=== PATIENT | male | born 1945 | race Caucasian/White ===

== ENCOUNTER 2019-12-05 10:44 | Inpatient (IN) | payer MEDICARE, OTHER ==
[~2019-12-05] VITALS: Ht 185.4 cm; Wt 114.3 kg
[~2019-12-05 10:44] MED LIST: ATIVAN0.5 MG PO; DULCOLAX5 M1 PO; ECOTRIN81 M1 PO; GLUCOSAMINE1000 MG PO; LOSARTAN POTASS1 TA4 PO; METFORMIN HCL500 M2 PO; NAPROSYN500 MG PO
[2019-12-05 10:45] VITALS: BP 166/73
[2019-12-05 11:36] LABS: BASO % 0.3 % (0.0-1.0); EOS # 0.3 10*3/uL (0.0-0.4); EOS % 4.8 % (1.0-4.0); HEMATOCRIT 41.7 % (42.0-52.0); HEMOGLOBIN 13.4 g/dl (14.0-18.0); LYMPH # 0.6 10*3/uL (1.3-4.4); MEAN CELL VOLUME 93.5 fl (80.0-94.0); MEAN CORPUSCULAR HGB CONC 32.1 g/dl (33.0-37.0); MEAN PLATELET VOLUME 12.4 fl (9.6-12.3); MONO # 0.9 10*3/uL (0.1-1.0); MONO % 12.1 % (3.0-9.0); NEUT # 5.3 10*3/uL (2.3-7.9); NEUT % 74.4 % (47.0-73.0); PLATELET COUNT AUTOMATED 144 10*3/uL (130-400); RED BLOOD COUNT 4.46 10*6/uL (4.50-5.90); RED CELL DISTRI WIDTH 12.6 % (0-14.5); WHITE BLOOD COUNT 7.1 10*3/uL (4.8-10.8)
[2019-12-05 11:46] LABS: ACT PARTIAL THROMBO TIME 30.2 SECONDS (20.0-32.1)
[2019-12-05 11:52] LABS: ALBUMIN 3.3 gm/dl (3.1-4.5); ALKALINE PHOSPHATASE 55 U/L (45-117); BUN 34 mg/dl (7-24); CHLORIDE 102 mmol/L (98-107); CREATININE 1.31 mg/dL (0.70-1.30); LIPASE 132 U/L (73-393); POTASSIUM 3.5 mmol/L (3.5-5.1); SGOT/AST 17 IU/L (3-35); SGPT/ALT 24 U/L (12-78); SODIUM 137 mmol/L (136-145); TOTAL PROTEIN 7.7 gm/dL (6.4-8.2)
[2019-12-05 11:54] LABS: TROPONIN I < 0.015 ng/ml (<0.045)
[2019-12-05 12:43] LABS: BILIRUBIN NEGATIVE (NEGATIVE); BLOOD NEGATIVE (NEGATIVE); CLARITY SL CLOUDY (CLEAR); COLOR YELLOW (YELLOW); GLUCOSE NEGATIVE (NEGATIVE); KETONE NEGATIVE (NEGATIVE); LEUKO ESTERASE 3+ (NEGATIVE); NITRITE POSITIVE (NEGATIVE); UROBILINOGEN 0.2 E.U./dl (0.2-1.0); WBC 31-40 wbc/hpf (0-5)
[2019-12-05 12:44] LABS: BACTERIA 4+; MUCOUS TRACE
--- NOTE | 2019-12-05 15:59 | NUR ---
Time: 1549 A 74 year old MALE admitted to 5E under services of SELENA MATUTE DO. Pt. arrived via bed from ER. Chief complaint: UTI, GENERAL WEAKNESS. ABI JONES
[2019-12-05] MEDS ORDERED: PIOGLITAZONE HC30 MG PO (16:04)
[2019-12-05] MEDS ORDERED: LIPITOR10 MG PO (16:04)
[2019-12-05] MEDS ORDERED: BIOTIN10000 MC1 PO (16:05)
[2019-12-05] MEDS ORDERED: VITAMIN D350 MCG PO (16:05)
[2019-12-05 16:26] VITALS: BP 152/67
--- NOTE | 2019-12-05 22:00 | NUR ---
PATIENT'S BS 162. PATIENT REFUSING INSULIN. HE STATED HE DOES NOT TAKE INSULIN AT HOME AND DOES NOT WANT IT HERE UNLESS "ABSOLUTELY NEEDED". RATIONALE FOR INSULIN GIVEN. PATIENT STILL REFUSING.
[2019-12-06] VITALS: BP 144/66
--- NOTE | 2019-12-06 02:00 | NUR ---
Patient resting quietly with no c/o discomfort. Respirations easy and regular. Vital signs stable. No overt distress. RENATO QUINONEZ
--- NOTE | 2019-12-06 03:24 | NUR ---
24 HR chart check completed.
[2019-12-06 07:08] LABS: BASO % 0.6 % (0.0-1.0); EOS # 0.3 10*3/uL (0.0-0.4); EOS % 6.8 % (1.0-4.0); HEMATOCRIT 36.8 % (42.0-52.0); HEMOGLOBIN 11.7 g/dl (14.0-18.0); LYMPH # 0.7 10*3/uL (1.3-4.4); LYMPH % 15.3 % (27.0-41.0); MEAN CELL VOLUME 92.9 fl (80.0-94.0); MEAN CORPUSCULAR HGB 29.5 pg (27.0-31.0); MEAN CORPUSCULAR HGB CONC 31.8 g/dl (33.0-37.0); MEAN PLATELET VOLUME 12.3 fl (9.6-12.3); MONO # 0.8 10*3/uL (0.1-1.0); MONO % 16.8 % (3.0-9.0); NEUT # 2.8 10*3/uL (2.3-7.9); NEUT % 60.3 % (47.0-73.0); PLATELET COUNT AUTOMATED 147 10*3/uL (130-400); RED BLOOD COUNT 3.96 10*6/uL (4.50-5.90); RED CELL DISTRI WIDTH 12.8 % (0-14.5); WHITE BLOOD COUNT 4.7 10*3/uL (4.8-10.8)
[2019-12-06 07:22] LABS: BUN 31 mg/dl (7-24); CHLORIDE 107 mmol/L (98-107); CHOLESTEROL 92 mg/dL (<200); CREATININE 0.99 mg/dL (0.70-1.30); HDL CHOLESTEROL 23 mg/dl (40-60); LDL CHOLESTEROL 48 mg/dL (9-159); POTASSIUM 3.1 mmol/L (3.5-5.1); SODIUM 140 mmol/L (136-145); TRIGLYCERIDES 103 mg/dl (<150); VLDL CHOLESTEROL 21 mg/dL (6-40)
[2019-12-06 08:00] VITALS: BP 152/66
--- NOTE | 2019-12-06 08:11 | NUR ---
PHYSICAL THERAPY Screen and PT eval received will follow thank you Maryana Lilly PT
--- NOTE | 2019-12-06 08:27 | NUR ---
Nursing screen received and occupational therapy evaluation received. Thank you. Yun Glover OTR/L
--- NOTE | 2019-12-06 12:29 | NUR ---
Scale Technician in to talk to patient. Patient states lives at HOME with ALONE. There are BASEMENT steps in the home. Physician: TREVON Pharmacy: [facility], BUT USES [facility] FOR SHORT TERM Home health services: NONE Patient's level of ADLs: INDEPENDENT Patient has working utilities: YES DME: [facility], HAS WALKERS IF NEEDED Follow-up physician's appointment after d/c: WILL BE MADE BY HOSPITALIST NURSE DIRECTOR ON DISCHARGE Does patient want to access PORTAL?: NO Discharge plan PT LIVES AT HOME ALONE AND IS INDEPENDENT IN HIS CARE. DENIES HE WILL HAVE ANY NEEDS ON DISCHARGE. STATES HE WILL RETURN HOME WHEN MEDICALLY STABLE. WILL CONTINUE TO FOLLOW. WILL HAVE A RIDE HOME ON DISCHARGE.. ILA RANDALL
--- NOTE | 2019-12-06 18:44 | NUR ---
PT REFUSES BGM AND INSULIN COVERAGE.
--- NOTE | 2019-12-06 20:15 | NUR ---
PT. STATES THAT HE WOULD LIKE HIS HEP LOCK REMOVED DUE TO THE LOCATION. INFORMED PATIENT THAT I WOULD MOVE IT IF IT CONTINUED TO BOTHER HIM & THAT HE NEEDED FOR HIS IV ANTIBIOTIC. PT. ALSO STATES THAT HE DID NOT REFUSE TO HAVE HIS BLOOD SUGARS DONE BUT THAT HE IS ONLY REFUSING THE INSULIN COVERAGE HE TAKES METFORMIN AT HOME. NO DISTRESS NOTED; CALL LIGHT WITHIN REACH.
[2019-12-07] VITALS: BP 118/43
--- NOTE | 2019-12-07 | NUR ---
RESTING IN BED WITH EYES CLOSED. CALL LIGHT WITHIN REACH.
--- NOTE | 2019-12-07 06:00 | NUR ---
BLOOD SUGAR 123. PT. REFUSES COVERAGE; DOES NOT TAKE IT HOME.
[2019-12-07 06:20] LABS: BASO % 0.6 % (0.0-1.0); EOS % 6.2 % (1.0-4.0); HEMATOCRIT 37.9 % (42.0-52.0); HEMOGLOBIN 12.2 g/dl (14.0-18.0); LYMPH % 20.3 % (27.0-41.0); MEAN CELL VOLUME 92.4 fl (80.0-94.0); MEAN CORPUSCULAR HGB 29.8 pg (27.0-31.0); MEAN CORPUSCULAR HGB CONC 32.2 g/dl (33.0-37.0); MEAN PLATELET VOLUME 11.2 fl (9.6-12.3); MONO % 14.9 % (3.0-9.0); NEUT % 57.8 % (47.0-73.0); PLATELET COUNT AUTOMATED 163 10*3/uL (130-400); RED CELL DISTRI WIDTH 12.7 % (0-14.5); WHITE BLOOD COUNT 5.2 10*3/uL (4.8-10.8)
[2019-12-07 06:21] LABS: EOS # 0.3 10*3/uL (0.0-0.4); LYMPH # 1.1 10*3/uL (1.3-4.4); MONO # 0.8 10*3/uL (0.1-1.0)
[2019-12-07 06:35] LABS: BUN 23 mg/dl (7-24); CHLORIDE 108 mmol/L (98-107); CREATININE 0.96 mg/dL (0.70-1.30); POTASSIUM 3.6 mmol/L (3.5-5.1); SODIUM 142 mmol/L (136-145)
[2019-12-07] MEDS ORDERED: AUGMENTIN 875-875 MG PO (09:20)
[2019-12-07 10:00] VITALS: BP 132/65
--- NOTE | 2019-12-07 11:10 | NUR ---
PT DISCHARGED AT THIS TIME. IV REMOVED AND PRESSURE DRESSING APPLIED. VERBALIZED UNDERSTANDING OF DISCHARGE INSTRUCTIONS.
--- NOTE | 2019-12-07 11:30 | NUR ---
PHYSICAL THERAPY PT SCREEN COMPLETED AND FOUND TO BE UP AD SHERRY IN ROOM WITH NO PT SERVICES NEEDED . THANK YOU FOR REFERRAL RONNIE MELENDEZ PT
== END 2019-12-07 11:10 | disposition home or self-care (01) | DRG 682 ==
LOC: ED 10:44 → EDHOLD 13:24 → 5E 13:24
PROVIDERS: Family Medicine; Internal Medicine; Nurse Practitioner Family; ADMIT Internal Medicine
DX: N17.0 Acute kidney failure with tubular necrosis (principal); G93.41 Metabolic encephalopathy; N30.00 Acute cystitis without hematuria; E44.0 Moderate protein-calorie malnutrition; R54 Age-related physical debility; D64.9 Anemia, unspecified; E11.65 Type 2 diabetes mellitus with hyperglycemia; E11.42 Type 2 diabetes mellitus with diabetic polyneuropathy; I10 Essential (primary) hypertension; E78.5 Hyperlipidemia, unspecified; F41.9 Anxiety disorder, unspecified; Z60.2 Problems related to living alone; B96.20 Unspecified Escherichia coli [E. coli] as the cause of diseases classified elsewhere; Z68.35 Body mass index [BMI] 35.0-35.9, adult; Z79.899 Other long term (current) drug therapy; Z79.82 Long term (current) use of aspirin; Z87.891 Personal history of nicotine dependence; Z81.1 Family history of alcohol abuse and dependence; Z82.49 Family history of ischemic heart disease and other diseases of the circulatory system

== ENCOUNTER 2021-04-23 16:49 | Emergency (ER) | payer MEDICARE, OTHER ==
[~2021-04-23] VITALS: Ht 185.4 cm; Wt 119.7 kg
[~2021-04-23 16:49] MED LIST changes: +AUGMENTIN 875-875 MG PO; +BIOTIN10000 MC1 PO; +CIPRO500 MG PO; +FINASTERIDE5 M1 PO; +HYDROCHLOROTH12.5 M2 PO; +LIPITOR10 MG PO; +METOPROLOL SUCC25 M2 PO; +MYRBETRIQ50 M1 PO; +NEURONTIN100 MG PO; +PIOGLITAZONE HC30 MG PO; +VITAMIN D350 MCG PO; +XARELTO20 M1 PO
[2021-04-23 17:17] LABS: BASO % 0.4 % (0.0-1.0); EOS # 0.1 10*3/uL (0.0-0.4); EOS % 1.9 % (1.0-4.0); HEMATOCRIT 38.7 % (42.0-52.0); LYMPH # 1.3 10*3/uL (1.3-4.4); LYMPH % 27.1 % (27.0-41.0); MEAN CELL VOLUME 93.7 fl (80.0-94.0); MEAN CORPUSCULAR HGB 29.8 pg (27.0-31.0); MEAN CORPUSCULAR HGB CONC 31.8 g/dl (33.0-37.0); MEAN PLATELET VOLUME 11.4 fl (9.6-12.3); MONO # 0.6 10*3/uL (0.1-1.0); MONO % 12.3 % (3.0-9.0); NEUT # 2.7 10*3/uL (2.3-7.9); NEUT % 58.1 % (47.0-73.0); PLATELET COUNT AUTOMATED 166 10*3/uL (130-400); RED BLOOD COUNT 4.13 10*6/uL (4.50-5.90); RED CELL DISTRI WIDTH 13.1 % (0-14.5); WHITE BLOOD COUNT 4.7 10*3/uL (4.8-10.8)
[2021-04-23 17:41] LABS: BILIRUBIN 1+ (Negative); BLOOD 2+ (Negative); CLARITY Turbid (Clear); COLOR Red (Yellow); GLUCOSE Negative (Negative); KETONE Negative (Negative); LEUKO ESTERASE 2+ (Negative); NITRITE Positive (Negative); SPECIFIC GRAVITY 1.015 (1.001-1.030); UROBILINOGEN 0.2 E.U./dl (0.0-1.0)
[2021-04-23 17:43] LABS: RBC TNTC rbc/hpf (0-2)
[2021-04-23] MEDS ORDERED: CIPRO250 MG PO (17:49)
== END 2021-04-23 17:55 | disposition home or self-care (01) ==
LOC: ED 16:49
PROVIDERS: Student in an Organized Health Care Education/Training Program
DX: R31.0 Gross hematuria (principal); N39.0 Urinary tract infection, site not specified; Z87.891 Personal history of nicotine dependence; Z98.890 Other specified postprocedural states; Z79.899 Other long term (current) drug therapy; Z79.82 Long term (current) use of aspirin

== ENCOUNTER 2023-04-30 09:08 | Emergency (ER) | payer MEDICARE, OTHER ==
[~2023-04-30] VITALS: Ht 185.4 cm; Wt 113.4 kg
[~2023-04-30 09:08] MED LIST changes: +CHOLESTYRAMINE P4 GM PO; +CIPRO250 MG PO; +DICLOFENAC SOD100 G1 T; +DICYCLOMINE HYD20 MG PO; +ERGOCALCIFEROL PO; +GEMTESA75 MG PO; +LEVOFLOXACIN750 M2 PO; +LOPERAMIDE HCL2 MG PO; +LOSARTAN POTASS50 M1 PO; +MAGOX 400400 MG PO; +MIRTAZAPINE15 M2 PO; +NATURAL FIBER0.52 GM PO; +ONDANSETRON HYDR8 MG PO; +OXYBUTYNIN CHLOR5 M1 PO; +PROCHLORPERAZIN10 MG PO; +ROSUVASTATIN CA10 MG PO; +[UNRECOGNIZED DRUG - OTHER] PO
[2023-04-30 09:45] LABS: BASO % 0.5 % (0.0-1.0); EOS # 0.3 10*3/uL (0.0-0.4); EOS % 4.9 % (1.0-4.0); HEMATOCRIT 39.6 % (42.0-52.0); LYMPH # 0.7 10*3/uL (1.3-4.4); LYMPH % 11.7 % (27.0-41.0); MEAN CELL VOLUME 90.2 fl (80.0-94.0); MEAN CORPUSCULAR HGB 29.8 pg (27.0-31.0); MEAN CORPUSCULAR HGB CONC 33.1 g/dl (33.0-37.0); MEAN PLATELET VOLUME 11.1 fl (9.6-12.3); MONO # 0.7 10*3/uL (0.1-1.0); NEUT # 4.3 10*3/uL (2.3-7.9); NEUT % 70.6 % (47.0-73.0); PLATELET COUNT AUTOMATED 169 10*3/uL (130-400); RED BLOOD COUNT 4.39 10*6/uL (4.50-5.90); RED CELL DISTRI WIDTH 12.9 % (0-14.5); WHITE BLOOD COUNT 6.2 10*3/uL (4.8-10.8)
[2023-04-30 10:11] LABS: ALKALINE PHOSPHATASE 57 U/L (46-116); BUN 23 mg/dl (9-23); CHLORIDE 101 mmol/L (98-107); POTASSIUM 4.3 mmol/L (3.4-5.1); SGPT/ALT 15 U/L (10-49); TOTAL PROTEIN 6.9 gm/dL (6.0-8.0)
[2023-04-30 10:32] LABS: BILIRUBIN Negative (Negative); BLOOD Negative (Negative); CLARITY Clear (Clear); COLOR Yellow (Yellow); GLUCOSE Negative (Negative); KETONE 1+ (Negative); LEUKO ESTERASE Negative (Negative); NITRITE Negative (Negative); PH 5.5 (4.5-8.0); SPECIFIC GRAVITY 1.015 (1.001-1.030)
[2023-04-30 11:11] LABS: RBC 0-2 rbc/hpf (0-2); WBC 0-2 wbc/hpf (0-5)
[2023-04-30 11:12] LABS: BACTERIA 1+; EPITHELIAL CELLS 0-2
== END 2023-04-30 12:26 ==
LOC: ED 09:08
PROVIDERS: Internal Medicine
DX: R53.1 Weakness (principal); Z79.2 Long term (current) use of antibiotics; Z79.899 Other long term (current) drug therapy; Z87.891 Personal history of nicotine dependence; Z98.890 Other specified postprocedural states

== ENCOUNTER 2023-07-31 12:35 | Inpatient (IN) | payer MEDICARE, OTHER ==
[~2023-07-31] VITALS: Ht 185.4 cm; Wt 122.5 kg
[2023-07-31 12:42] VITALS: BP 139/72
[2023-07-31 13:12] LABS: BASO % 0.5 % (0.0-1.0); EOS # 0.1 10*3/uL (0.0-0.4); EOS % 2.9 % (1.0-4.0); LYMPH # 0.8 10*3/uL (1.3-4.4); MEAN CELL VOLUME 94.6 fl (80.0-94.0); MEAN CORPUSCULAR HGB 30.8 pg (27.0-31.0); MEAN CORPUSCULAR HGB CONC 32.6 g/dl (33.0-37.0); MEAN PLATELET VOLUME 11.6 fl (9.6-12.3); MONO # 0.5 10*3/uL (0.1-1.0); MONO % 12.1 % (3.0-9.0); NEUT # 2.7 10*3/uL (2.3-7.9); NEUT % 64.3 % (47.0-73.0); PLATELET COUNT AUTOMATED 109 10*3/uL (130-400); RED CELL DISTRI WIDTH 14.3 % (0-14.5); WHITE BLOOD COUNT 4.1 10*3/uL (4.8-10.8)
[2023-07-31] MEDS ORDERED: CELECOXIB200 MG PO (13:12)
[2023-07-31] MEDS ORDERED: CHOLESTYRAMINE P4 GM PO (13:13)
[2023-07-31] MEDS ORDERED: LEVOXYL50 MCG PO (13:17)
[2023-07-31 13:20] LABS: ACT PARTIAL THROMBO TIME 43.6 SECONDS (20.0-32.1); INTERNATIONAL NORM RATIO 1.1 (2.0-3.5)
[2023-07-31] MEDS ORDERED: ADULT TUSS100 MG/5 M PO (13:25)
[2023-07-31] MEDS ORDERED: ZINC-22050 MG PO (13:27)
[2023-07-31] MEDS ORDERED: VITAMIN D250 MCG PO (13:29)
[2023-07-31] MEDS ORDERED: MIRALAX POWDER17 G1 PO (13:30)
[2023-07-31 13:31] LABS: ALKALINE PHOSPHATASE 58 U/L (46-116); BUN 20 mg/dl (9-23); CHLORIDE 105 mmol/L (98-107); LIPASE 43 U/L (12-53); POTASSIUM 4.4 mmol/L (3.4-5.1); SGPT/ALT 8 U/L (10-49); TOTAL PROTEIN 6.6 gm/dL (6.0-8.0)
[2023-07-31] MEDS ORDERED: LEVOFLOXACIN500 MG PO (13:35)
[2023-07-31 15:17] LABS: BILIRUBIN Negative (Negative); BLOOD Negative (Negative); CLARITY Clear (Clear); COLOR Yellow (Yellow); GLUCOSE Negative (Negative); KETONE Negative (Negative); LEUKO ESTERASE Negative (Negative); NITRITE Negative (Negative); PH 6.5 (4.5-8.0); SPECIFIC GRAVITY 1.015 (1.001-1.030); UROBILINOGEN 0.2 E.U./dl (0.0-1.0)
[2023-07-31 15:27] LABS: BACTERIA TRACE; EPITHELIAL CELLS 0-2; RBC 0-2 rbc/hpf (0-2); WBC 0-2 wbc/hpf (0-5)
[2023-07-31 19:38] VITALS: BP 156/74
[2023-07-31 23:41] VITALS: BP 121/56
[2023-08-01] VITALS (7 sets, daily range): BP systolic 119–145; BP diastolic 42–68
[2023-08-01 06:25] LABS: BASO % 0.5 % (0.0-1.0); EOS # 0.2 10*3/uL (0.0-0.4); EOS % 4.8 % (1.0-4.0); HEMATOCRIT 36.6 % (42.0-52.0); LYMPH # 0.8 10*3/uL (1.3-4.4); LYMPH % 20.2 % (27.0-41.0); MEAN CELL VOLUME 95.3 fl (80.0-94.0); MEAN CORPUSCULAR HGB 29.9 pg (27.0-31.0); MEAN CORPUSCULAR HGB CONC 31.4 g/dl (33.0-37.0); MEAN PLATELET VOLUME 12.1 fl (9.6-12.3); MONO # 0.7 10*3/uL (0.1-1.0); MONO % 15.7 % (3.0-9.0); NEUT # 2.4 10*3/uL (2.3-7.9); NEUT % 58.8 % (47.0-73.0); PLATELET COUNT AUTOMATED 111 10*3/uL (130-400); RED BLOOD COUNT 3.84 10*6/uL (4.50-5.90); RED CELL DISTRI WIDTH 14.4 % (0-14.5); WHITE BLOOD COUNT 4.2 10*3/uL (4.8-10.8)
[2023-08-01 06:50] LABS: ALKALINE PHOSPHATASE 50 U/L (46-116); BUN 29 mg/dl (9-23); CHLORIDE 105 mmol/L (98-107); POTASSIUM 4.2 mmol/L (3.4-5.1); SGPT/ALT 8 U/L (10-49); TOTAL PROTEIN 6.4 gm/dL (6.0-8.0)
[2023-08-01 07:50] LABS: VITAMIN D, 25-HYDROXY 50.6 ng/mL (30-100)
[2023-08-02] VITALS: BP 109/57
[2023-08-02 06:06] LABS: POTASSIUM 4.1 mmol/L (3.4-5.1)
[2023-08-02 08:00] VITALS: BP 106/42
[2023-08-02] MEDS ORDERED: METFORMIN HCL500 M2 PO (11:56)
[2023-08-02] MEDS ORDERED: LASIX40 MG PO (11:57)
[2023-08-02] MEDS ORDERED: COZAAR25 M1 PO (11:57)
[2023-08-02 12:00] VITALS: BP 111/43
== END 2023-08-02 14:25 | disposition home health service (06) | DRG 690 ==
LOC: ED 12:35 → EDHOLD 15:37 → 4E 15:37
PROVIDERS: Emergency Medicine; Internal Medicine; ADMIT Internal Medicine; ATTEND Internal Medicine
DX: N39.0 Urinary tract infection, site not specified (principal); I48.20 Chronic atrial fibrillation, unspecified; D69.6 Thrombocytopenia, unspecified; F41.9 Anxiety disorder, unspecified; E11.40 Type 2 diabetes mellitus with diabetic neuropathy, unspecified; E78.5 Hyperlipidemia, unspecified; E11.65 Type 2 diabetes mellitus with hyperglycemia; E66.9 Obesity, unspecified; D53.9 Nutritional anemia, unspecified; Z66 Do not resuscitate; D50.9 Iron deficiency anemia, unspecified; Z87.891 Personal history of nicotine dependence; Z85.51 Personal history of malignant neoplasm of bladder; Z86.73 Personal history of transient ischemic attack (TIA), and cerebral infarction without residual deficits; Z68.35 Body mass index [BMI] 35.0-35.9, adult; I12.9 Hypertensive chronic kidney disease with stage 1 through stage 4 chronic kidney disease, or unspecified chronic kidney disease; E11.22 Type 2 diabetes mellitus with diabetic chronic kidney disease; N18.31 Chronic kidney disease, stage 3a

== ENCOUNTER 2023-09-13 09:43 | Observation (INO) | payer MEDICARE, OTHER ==
[~2023-09-13] VITALS: Wt 129.7 kg
[~2023-09-13 09:43] MED LIST changes: +ADULT TUSS100 MG/5 M PO; +CELECOXIB200 MG PO; +COZAAR25 M1 PO; +LASIX40 MG PO; +LEVOFLOXACIN500 MG PO; +LEVOXYL50 MCG PO; +MIRALAX POWDER17 G1 PO; +VITAMIN D250 MCG PO; +ZINC-22050 MG PO
[2023-09-13 09:46] VITALS: BP 118/43
[2023-09-13 10:24] LABS: BILIRUBIN Negative (Negative); BLOOD Negative (Negative); CLARITY Clear (Clear); COLOR Yellow (Yellow); GLUCOSE Negative (Negative); KETONE Negative (Negative); LEUKO ESTERASE Negative (Negative); NITRITE Negative (Negative); UROBILINOGEN 0.2 E.U./dl (0.0-1.0)
[2023-09-13] MEDS ORDERED: TRAMADOL HCL50 MG PO (10:26)
[2023-09-13 10:33] LABS: EPITHELIAL CELLS 0-2; HYALINE CAST 0-2
[2023-09-13 10:56] LABS: BASO % 0.6 % (0.0-1.0); EOS # 0.1 10*3/uL (0.0-0.4); EOS % 3.3 % (1.0-4.0); HEMATOCRIT 35.2 % (42.0-52.0); LYMPH # 0.7 10*3/uL (1.3-4.4); LYMPH % 19.5 % (27.0-41.0); MEAN CELL VOLUME 93.9 fl (80.0-94.0); MEAN CORPUSCULAR HGB 30.4 pg (27.0-31.0); MEAN CORPUSCULAR HGB CONC 32.4 g/dl (33.0-37.0); MEAN PLATELET VOLUME 11.2 fl (9.6-12.3); MONO # 0.4 10*3/uL (0.1-1.0); MONO % 12.7 % (3.0-9.0); NEUT # 2.2 10*3/uL (2.3-7.9); NEUT % 63.6 % (47.0-73.0); PLATELET COUNT AUTOMATED 120 10*3/uL (130-400); RED BLOOD COUNT 3.75 10*6/uL (4.50-5.90); RED CELL DISTRI WIDTH 14.2 % (0-14.5); WHITE BLOOD COUNT 3.4 10*3/uL (4.8-10.8)
[2023-09-13 11:08] LABS: ACT PARTIAL THROMBO TIME 51.7 SECONDS (20.0-32.1)
[2023-09-13 11:18] LABS: ALKALINE PHOSPHATASE 64 U/L (46-116); BUN 25 mg/dl (9-23); CHLORIDE 105 mmol/L (98-107); LIPASE 43 U/L (12-53); POTASSIUM 4.4 mmol/L (3.4-5.1); SGPT/ALT 11 U/L (5-49); TOTAL PROTEIN 6.6 gm/dL (6.0-8.0)
[2023-09-13] MEDS ORDERED: VITAMIN B-12500 MC4 PO (11:20)
[2023-09-13 14:42] VITALS: BP 127/48
== END 2023-09-13 17:15 | disposition home or self-care (01) ==
LOC: ED 09:43 → EDHOLD 11:55 → 5E 15:59 → EDHOLD 17:15
PROVIDERS: Emergency Medicine; ADMIT Internal Medicine; ATTEND Internal Medicine
DX: R26.2 Difficulty in walking, not elsewhere classified (principal); D61.818 Other pancytopenia; E66.09 Other obesity due to excess calories; R53.83 Other fatigue; E11.42 Type 2 diabetes mellitus with diabetic polyneuropathy; I10 Essential (primary) hypertension; G62.9 Polyneuropathy, unspecified; F41.9 Anxiety disorder, unspecified; I48.91 Unspecified atrial fibrillation; E78.5 Hyperlipidemia, unspecified; Z79.84 Long term (current) use of oral hypoglycemic drugs; Z79.899 Other long term (current) drug therapy

== ENCOUNTER 2024-01-25 07:58 | Emergency (ER) | payer MEDICARE, OTHER ==
[~2024-01-25] VITALS: Ht 185.4 cm; Wt 123.8 kg
[~2024-01-25 07:58] MED LIST changes: +TRAMADOL HCL50 MG PO; +VITAMIN B-12500 MC4 PO
[2024-01-25] MEDS ORDERED: SODIUM CHLORIDE 0.9% 1,000 ML IV ONE (08:15)
[2024-01-25 08:34] LABS: BASO % 0.6 % (0.0-1.0); EOS # 0.1 10*3/uL (0.0-0.4); EOS % 3.5 % (1.0-4.0); HEMATOCRIT 39.3 % (42.0-52.0); LYMPH # 0.6 10*3/uL (1.3-4.4); LYMPH % 16.1 % (27.0-41.0); MEAN CELL VOLUME 98.5 fl (80.0-94.0); MEAN CORPUSCULAR HGB 30.3 pg (27.0-31.0); MEAN CORPUSCULAR HGB CONC 30.8 g/dl (33.0-37.0); MEAN PLATELET VOLUME 11.3 fl (9.6-12.3); MONO # 0.4 10*3/uL (0.1-1.0); MONO % 12.6 % (3.0-9.0); NEUT # 2.3 10*3/uL (2.3-7.9); NEUT % 66.9 % (47.0-73.0); PLATELET COUNT AUTOMATED 119 10*3/uL (130-400); RED BLOOD COUNT 3.99 10*6/uL (4.50-5.90); RED CELL DISTRI WIDTH 13.6 % (0-14.5); WHITE BLOOD COUNT 3.4 10*3/uL (4.8-10.8)
[2024-01-25 08:54] LABS: POTASSIUM 4.4 mmol/L (3.4-5.1); TOTAL PROTEIN 6.8 gm/dL (6.0-8.0)
[2024-01-25 09:51] LABS: BILIRUBIN Negative (Negative); BLOOD Negative (Negative); CLARITY Clear (Clear); COLOR Yellow (Yellow); GLUCOSE Negative (Negative); KETONE Negative (Negative); LEUKO ESTERASE Negative (Negative); NITRITE Negative (Negative); PH 6.5 (4.5-8.0); UROBILINOGEN 0.2 E.U./dl (0.0-1.0)
[2024-01-25 10:27] LABS: BACTERIA TRACE; MUCOUS TRACE; WBC 0-2 wbc/hpf (0-5)
== END 2024-01-25 12:32 | disposition home or self-care (01) ==
LOC: ED 07:58
PROVIDERS: Emergency Medicine
DX: F41.9 Anxiety disorder, unspecified (principal); F32.A Depression, unspecified; I48.91 Unspecified atrial fibrillation; I10 Essential (primary) hypertension; E78.5 Hyperlipidemia, unspecified; E78.00 Pure hypercholesterolemia, unspecified; E11.40 Type 2 diabetes mellitus with diabetic neuropathy, unspecified; Z98.890 Other specified postprocedural states; Z87.891 Personal history of nicotine dependence

== ENCOUNTER 2024-02-02 07:37 | Inpatient (IN) | payer MEDICARE, OTHER ==
[~2024-02-02] VITALS: Ht 186.6 cm; Wt 125.3 kg
[2024-02-02 07:41] VITALS: BP 125/55
[2024-02-02] MEDS ORDERED: SODIUM CHLORIDE 0.9% 1,000 ML IV ONE (07:50)
[2024-02-02] MEDS ORDERED: SODIUM POLYSTYRENE SULFONATE 15 GM/60 ML BOT PO ONE (07:50)
[2024-02-02] MEDS ORDERED: LACTULOSE 20 GM/30 ML UDC PO ONE (07:50)
[2024-02-02] MEDS ORDERED: LEVOTHYROXINE75 MC1 PO (08:11)
[2024-02-02 08:39] LABS: POTASSIUM 4.1 mmol/L (3.4-5.1)
[2024-02-02 09:49] LABS: BASO % 0.2 % (0.0-1.0); EOS # 0.1 10*3/uL (0.0-0.4); EOS % 1.1 % (1.0-4.0); HEMATOCRIT 38.8 % (42.0-52.0); LYMPH # 0.6 10*3/uL (1.3-4.4); MEAN CELL VOLUME 96.8 fl (80.0-94.0); MEAN CORPUSCULAR HGB 29.9 pg (27.0-31.0); MEAN CORPUSCULAR HGB CONC 30.9 g/dl (33.0-37.0); MEAN PLATELET VOLUME 11.2 fl (9.6-12.3); MONO # 0.5 10*3/uL (0.1-1.0); MONO % 11.2 % (3.0-9.0); NEUT # 3.6 10*3/uL (2.3-7.9); NEUT % 75.1 % (47.0-73.0); PLATELET COUNT AUTOMATED 122 10*3/uL (130-400); RED BLOOD COUNT 4.01 10*6/uL (4.50-5.90); RED CELL DISTRI WIDTH 13.5 % (0-14.5); WHITE BLOOD COUNT 4.7 10*3/uL (4.8-10.8)
[2024-02-02 11:46] VITALS: BP 143/60
[2024-02-02] MEDS ORDERED: Acetaminophen/Hydrocodone 5 MG/325 MG TABLET PO PRN (11:55)
[2024-02-02] MEDS ORDERED: Ondansetron Hydrochloride 4 MG/2 ML VIAL IV PRN (11:55)
[2024-02-02] MEDS ORDERED: ACETAMINOPHEN 325 MG TAB PO PRN (11:55)
[2024-02-02] MEDS ORDERED: BISACODYL 5 MG TAB PO PRN (11:55)
[2024-02-02] MEDS ORDERED: Magnesium Hydroxide 30 ML UDC PO PRN (11:55)
[2024-02-02] MEDS ORDERED: DEXTROSE 10 % IN WATER 250 ML IV PRN (12:05)
[2024-02-02 14:30] VITALS: BP 150/70
[2024-02-02] MEDS ORDERED: BIOFREEZE89 ML T (14:43)
[2024-02-02] MEDS ORDERED: INSULIN LISPRO 1 UNIT/0.01 ML SQ SCH (16:30)
[2024-02-02 20:00] VITALS: BP 160/57
[2024-02-02 22:00] VITALS: BP 160/57
[2024-02-03] VITALS: BP 115/40
[2024-02-03 06:43] LABS: BASO % 0.5 % (0.0-1.0); EOS # 0.1 10*3/uL (0.0-0.4); EOS % 3.2 % (1.0-4.0); HEMATOCRIT 39.7 % (42.0-52.0); LYMPH # 0.8 10*3/uL (1.3-4.4); LYMPH % 21.2 % (27.0-41.0); MEAN CELL VOLUME 95.7 fl (80.0-94.0); MEAN CORPUSCULAR HGB 30.1 pg (27.0-31.0); MEAN CORPUSCULAR HGB CONC 31.5 g/dl (33.0-37.0); MEAN PLATELET VOLUME 11.3 fl (9.6-12.3); MONO # 0.5 10*3/uL (0.1-1.0); NEUT # 2.3 10*3/uL (2.3-7.9); NEUT % 60.8 % (47.0-73.0); PLATELET COUNT AUTOMATED 130 10*3/uL (130-400); RED BLOOD COUNT 4.15 10*6/uL (4.50-5.90); RED CELL DISTRI WIDTH 13.6 % (0-14.5); WHITE BLOOD COUNT 3.8 10*3/uL (4.8-10.8)
[2024-02-03 07:13] LABS: BUN 30 mg/dl (9-23); CHLORIDE 103 mmol/L (98-107); POTASSIUM 3.8 mmol/L (3.4-5.1)
[2024-02-03 08:00] VITALS: BP 142/59
[2024-02-03 08:46] VITALS: BP 120/50
[2024-02-03] MEDS ORDERED: Enoxaparin Sodium 40 MG/0.4 ML SYR SC SCH (10:00)
[2024-02-03] MEDS ORDERED: MORPHINE Sulfate 2 MG/ML SYR IV PRN (10:35)
[2024-02-03] MEDS ORDERED: Acetaminophen/Hydrocodone HP 10/325 PO PRN (10:35)
[2024-02-03 12:00] VITALS: BP 122/52
[2024-02-03] MEDS ORDERED: DICLOFENAC SODIUM 100 GM TUBE T SCH ×2 (14:00→18:00)
[2024-02-03 16:00] VITALS: BP 140/65
[2024-02-03 20:00] VITALS: BP 128/66
[2024-02-04] VITALS: BP 172/66
[2024-02-04 06:05] LABS: BASO % 0.4 % (0.0-1.0); EOS # 0.1 10*3/uL (0.0-0.4); EOS % 1.1 % (1.0-4.0); HEMATOCRIT 40.9 % (42.0-52.0); LYMPH # 0.8 10*3/uL (1.3-4.4); LYMPH % 14.1 % (27.0-41.0); MEAN CELL VOLUME 95.8 fl (80.0-94.0); MEAN CORPUSCULAR HGB 30.2 pg (27.0-31.0); MEAN CORPUSCULAR HGB CONC 31.5 g/dl (33.0-37.0); MEAN PLATELET VOLUME 11.7 fl (9.6-12.3); MONO # 0.9 10*3/uL (0.1-1.0); MONO % 15.7 % (3.0-9.0); NEUT # 3.8 10*3/uL (2.3-7.9); NEUT % 68.5 % (47.0-73.0); PLATELET COUNT AUTOMATED 124 10*3/uL (130-400); RED BLOOD COUNT 4.27 10*6/uL (4.50-5.90); RED CELL DISTRI WIDTH 13.6 % (0-14.5); WHITE BLOOD COUNT 5.5 10*3/uL (4.8-10.8)
[2024-02-04 06:24] LABS: BUN 24 mg/dl (9-23); CHLORIDE 103 mmol/L (98-107); POTASSIUM 3.6 mmol/L (3.4-5.1)
[2024-02-04 08:00] VITALS: BP 147/61
[2024-02-04] MEDS ORDERED: IOHEXOL 300 MG/ML 100 ML VIAL IV ONE (11:50)
[2024-02-04 12:00] VITALS: BP 152/62
[2024-02-04] MEDS ORDERED: BARIUM SULFATE 2% 450 ML BOT PO SCH (12:00)
[2024-02-04] MEDS ORDERED: Acetaminophen/Hydrocodone HP 10/325 PO SCH (12:00)
[2024-02-04 16:00] VITALS: BP 142/68
[2024-02-04 20:00] VITALS: BP 134/54
[2024-02-05] VITALS: BP 134/541
[2024-02-05 06:13] LABS: BASO % 0.2 % (0.0-1.0); EOS # 0.1 10*3/uL (0.0-0.4); LYMPH # 0.7 10*3/uL (1.3-4.4); LYMPH % 13.3 % (27.0-41.0); MEAN CORPUSCULAR HGB 30.3 pg (27.0-31.0); MEAN CORPUSCULAR HGB CONC 31.9 g/dl (33.0-37.0); MEAN PLATELET VOLUME 10.9 fl (9.6-12.3); MONO # 0.6 10*3/uL (0.1-1.0); NEUT # 3.6 10*3/uL (2.3-7.9); NEUT % 73.1 % (47.0-73.0); PLATELET COUNT AUTOMATED 127 10*3/uL (130-400); RED BLOOD COUNT 4.42 10*6/uL (4.50-5.90); RED CELL DISTRI WIDTH 13.4 % (0-14.5); WHITE BLOOD COUNT 4.9 10*3/uL (4.8-10.8)
[2024-02-05 06:36] LABS: BUN 21 mg/dl (9-23); CHLORIDE 102 mmol/L (98-107); POTASSIUM 3.6 mmol/L (3.4-5.1)
[2024-02-05 08:00] VITALS: BP 142/58
[2024-02-05] MEDS ORDERED: CALCIUM (TUMS) 500MG PO ONE (08:25)
[2024-02-05] MEDS ORDERED: DOCUSATE SODIUM 100 MG CAP PO SCH (08:40)
[2024-02-05] MEDS ORDERED: Levothyroxine Sodium 75 MCG TAB PO SCH (10:50)
[2024-02-05 12:00] VITALS: BP 121/72
[2024-02-05 16:00] VITALS: BP 126/61
[2024-02-05] MEDS ORDERED: FINASTERIDE 5 MG TAB PO SCH (16:00)
[2024-02-05] MEDS ORDERED: GABAPENTIN 300 MG CAP PO SCH (16:00)
[2024-02-05 20:00] VITALS: BP 120/60
[2024-02-06] VITALS: BP 128/61
[2024-02-06 07:58] LABS: BASO % 0.3 % (0.0-1.0); EOS # 0.2 10*3/uL (0.0-0.4); EOS % 4.6 % (1.0-4.0); HEMATOCRIT 43.5 % (42.0-52.0); LYMPH # 0.7 10*3/uL (1.3-4.4); MEAN CORPUSCULAR HGB 30.3 pg (27.0-31.0); MEAN CORPUSCULAR HGB CONC 30.6 g/dl (33.0-37.0); MEAN PLATELET VOLUME 11.4 fl (9.6-12.3); MONO # 0.6 10*3/uL (0.1-1.0); MONO % 14.4 % (3.0-9.0); NEUT # 2.4 10*3/uL (2.3-7.9); NEUT % 61.7 % (47.0-73.0); PLATELET COUNT AUTOMATED 125 10*3/uL (130-400); RED BLOOD COUNT 4.39 10*6/uL (4.50-5.90); RED CELL DISTRI WIDTH 13.2 % (0-14.5); WHITE BLOOD COUNT 3.9 10*3/uL (4.8-10.8)
[2024-02-06 07:59] LABS: MEAN CELL VOLUME 99.1 fl (80.0-94.0)
[2024-02-06 08:00] VITALS: BP 133/59
[2024-02-06] MEDS ORDERED: Losartan Potassium 25 MG TAB PO SCH (10:00)
[2024-02-06] MEDS ORDERED: LORazepam 0.5 MG TAB PO SCH (10:00)
[2024-02-06] MEDS ORDERED: METOPROLOL SUCCINATE XR 25 MG TAB PO SCH (10:00)
[2024-02-06 12:00] VITALS: BP 136/68
[2024-02-06 16:00] VITALS: BP 112/53
[2024-02-06 20:00] VITALS: BP 105/42
[2024-02-07] VITALS: BP 100/50
[2024-02-07 08:00] VITALS: BP 123/52
[2024-02-07 12:00] VITALS: BP 124/56
== END 2024-02-07 14:06 | DRG 553 ==
LOC: ED 07:37 → EDHOLD 11:08 → 4E 11:08 → ICCU 11:08 → EDHOLD 11:09 → ICCU 11:55 → 4E 14:47
PROVIDERS: Emergency Medicine; Occupational Therapist; Student in an Organized Health Care Education/Training Program; ADMIT Family Medicine; ATTEND Family Medicine
DX: M17.0 Bilateral primary osteoarthritis of knee (principal); N17.0 Acute kidney failure with tubular necrosis; D61.818 Other pancytopenia; K52.9 Noninfective gastroenteritis and colitis, unspecified; R26.2 Difficulty in walking, not elsewhere classified; K59.00 Constipation, unspecified; E66.01 Morbid (severe) obesity due to excess calories; F41.9 Anxiety disorder, unspecified; I48.91 Unspecified atrial fibrillation; E11.22 Type 2 diabetes mellitus with diabetic chronic kidney disease; N18.31 Chronic kidney disease, stage 3a; I12.9 Hypertensive chronic kidney disease with stage 1 through stage 4 chronic kidney disease, or unspecified chronic kidney disease; E11.42 Type 2 diabetes mellitus with diabetic polyneuropathy; E78.5 Hyperlipidemia, unspecified; Z86.73 Personal history of transient ischemic attack (TIA), and cerebral infarction without residual deficits; Z87.891 Personal history of nicotine dependence; Z79.899 Other long term (current) drug therapy; Z79.84 Long term (current) use of oral hypoglycemic drugs; Z68.35 Body mass index [BMI] 35.0-35.9, adult

== ENCOUNTER 2024-03-01 13:42 | Emergency (ER) | payer MEDICARE, OTHER ==
[~2024-03-01] VITALS: Ht 185.4 cm; Wt 122.5 kg
[~2024-03-01 13:42] MED LIST changes: +BIOFREEZE89 ML T; +LEVOTHYROXINE75 MC1 PO
[2024-03-01] MEDS ORDERED: Ondansetron Hydrochloride 4 MG TAB SL ONE (13:55)
[2024-03-01 14:12] LABS: BASO % 0.2 % (0.0-1.0); EOS # 0.1 10*3/uL (0.0-0.4); EOS % 2.9 % (1.0-4.0); LYMPH # 1.1 10*3/uL (1.3-4.4); LYMPH % 25.3 % (27.0-41.0); MEAN CELL VOLUME 97.1 fl (80.0-94.0); MEAN CORPUSCULAR HGB 30.2 pg (27.0-31.0); MEAN CORPUSCULAR HGB CONC 31.2 g/dl (33.0-37.0); MEAN PLATELET VOLUME 11.4 fl (9.6-12.3); MONO # 0.5 10*3/uL (0.1-1.0); MONO % 11.7 % (3.0-9.0); NEUT # 2.5 10*3/uL (2.3-7.9); NEUT % 59.7 % (47.0-73.0); PLATELET COUNT AUTOMATED 122 10*3/uL (130-400); RED BLOOD COUNT 4.43 10*6/uL (4.50-5.90); RED CELL DISTRI WIDTH 13.2 % (0-14.5); WHITE BLOOD COUNT 4.2 10*3/uL (4.8-10.8)
[2024-03-01 14:16] LABS: BILIRUBIN Negative (Negative); BLOOD Negative (Negative); CLARITY Clear (Clear); COLOR Yellow (Yellow); GLUCOSE Negative (Negative); KETONE Negative (Negative); LEUKO ESTERASE Negative (Negative); NITRITE Negative (Negative); PH 7.5 (4.5-8.0); UROBILINOGEN 0.2 E.U./dl (0.0-1.0)
[2024-03-01 14:34] LABS: EPITHELIAL CELLS 0-2
[2024-03-01 14:38] LABS: ALKALINE PHOSPHATASE 56 U/L (46-116); BUN 13 mg/dl (9-23); CHLORIDE 104 mmol/L (98-107); POTASSIUM 3.9 mmol/L (3.4-5.1); SGPT/ALT 11 U/L (5-49); TOTAL PROTEIN 6.9 gm/dL (6.0-8.0)
== END 2024-03-01 15:20 ==
LOC: ED 13:42
PROVIDERS: Nurse Practitioner Family
DX: R11.2 Nausea with vomiting, unspecified (principal); I10 Essential (primary) hypertension; E11.40 Type 2 diabetes mellitus with diabetic neuropathy, unspecified; Z98.890 Other specified postprocedural states; Z90.49 Acquired absence of other specified parts of digestive tract; Z87.891 Personal history of nicotine dependence

== ENCOUNTER 2024-10-02 10:17 | Inpatient (IN) | payer MEDICARE, OTHER ==
[~2024-10-02] VITALS: Ht 182.8 cm; Wt 122.5 kg
[~2024-10-02 10:17] MED LIST changes: +GUAIFENESI100 MG/56 PO; +LORAZEPAM0.5 M1 PO; +Ondansetron8 MG PO; +VITAMIN D250 MC1 PO
[2024-10-02 10:19] VITALS: BP 151/64
[2024-10-02] MEDS ORDERED: Ceftriaxone Sodium 1 GM/10 ML SYR IV ONE (10:35)
[2024-10-02] MEDS ORDERED: SODIUM CHLORIDE 0.9% 250 ML IV ONE (10:35)
[2024-10-02] MEDS ORDERED: Ondansetron Hydrochloride 4 MG/2 ML VIAL IV PRN (12:50)
[2024-10-02] MEDS ORDERED: ACETAMINOPHEN 325 MG TAB PO PRN ×2 (12:50→15:50)
[2024-10-02] MEDS ORDERED: BISACODYL 5 MG TAB PO PRN (12:50)
[2024-10-02] MEDS ORDERED: DEXTROSE 10 % IN WATER 250 ML IV PRN (13:10)
[2024-10-02] MEDS ORDERED: FUROSEMIDE40 MG PO (15:48)
[2024-10-02] MEDS ORDERED: HYDROCODONE-AC1 EAC1 PO (15:49)
[2024-10-02] MEDS ORDERED: Acetaminophen/Hydrocodone 5 MG/325 MG TABLET PO PRN (15:50)
[2024-10-02] MEDS ORDERED: ACETAMINOPHEN 650 MG SUPP R PRN (15:50)
[2024-10-02] MEDS ORDERED: INSULIN LISPRO 1 UNIT/0.01 ML SQ SCH (16:30)
[2024-10-02 18:00] VITALS: BP 141/60
[2024-10-02 20:00] VITALS: BP 136/52
[2024-10-02] MEDS ORDERED: Dicyclomine Hydrochloride 20 MG TAB PO PRN (22:50)
[2024-10-03] VITALS: BP 140/48
[2024-10-03 04:00] VITALS: BP 145/65
[2024-10-03 04:47] LABS: BASO % 0.4 % (0.0-1.0); EOS # 0.1 10*3/uL (0.0-0.4); EOS % 1.3 % (1.0-4.0); MEAN CELL VOLUME 96.6 fl (80.0-94.0); MEAN CORPUSCULAR HGB 30.8 pg (27.0-31.0); MEAN CORPUSCULAR HGB CONC 31.9 g/dl (33.0-37.0); MEAN PLATELET VOLUME 10.3 fl (9.6-12.3); MONO # 0.6 10*3/uL (0.1-1.0); MONO % 13.5 % (3.0-9.0); NEUT # 3.1 10*3/uL (2.3-7.9); NEUT % 68.3 % (47.0-73.0); PLATELET COUNT AUTOMATED 121 10*3/uL (130-400); RED BLOOD COUNT 3.83 10*6/uL (4.50-5.90); RED CELL DISTRI WIDTH 13.5 % (0-14.5); WHITE BLOOD COUNT 4.6 10*3/uL (4.8-10.8)
[2024-10-03 05:09] LABS: ALKALINE PHOSPHATASE 56 U/L (46-116); BUN 25 mg/dl (9-23); CHLORIDE 104 mmol/L (98-107); POTASSIUM 3.7 mmol/L (3.4-5.1); SGPT/ALT 9 U/L (5-49)
[2024-10-03] MEDS ORDERED: Piperacillin Sodium/Tazobact 50 ML IV SCH (06:00)
[2024-10-03] MEDS ORDERED: Levothyroxine Sodium 75 MCG TAB PO SCH (06:00)
[2024-10-03 08:00] VITALS: BP 162/55
[2024-10-03] MEDS ORDERED: GABAPENTIN 300 MG CAP PO SCH (08:00)
[2024-10-03] MEDS ORDERED: Enoxaparin Sodium 40 MG/0.4 ML SYR SC SCH (10:00)
[2024-10-03] MEDS ORDERED: Losartan Potassium 25 MG TAB PO SCH (10:00)
[2024-10-03] MEDS ORDERED: LORazepam 0.5 MG TAB PO SCH (10:00)
[2024-10-03] MEDS ORDERED: Oxybutynin Chloride 5 MG TAB PO SCH (10:00)
[2024-10-03] MEDS ORDERED: METOPROLOL SUCCINATE XR 25 MG TAB PO SCH (10:00)
[2024-10-03] MEDS ORDERED: Ceftriaxone Sodium 1 GM,IV 1 EA in SYRINGE INFUSION 10 ML IV SCH (10:00)
[2024-10-03] MEDS ORDERED: ATORVASTATIN CALCIUM 40 MG TABLET PO SCH (10:00)
[2024-10-03] MEDS ORDERED: FUROSEMIDE 40 MG TAB PO SCH (10:00)
[2024-10-03 12:00] VITALS: BP 139/51
[2024-10-03] MEDS ORDERED: FINASTERIDE 5 MG TAB PO SCH (16:00)
[2024-10-03] MEDS ORDERED: HEPARIN SODIUM 500 UNIT/5 ML SYR IV SCH (17:25)
[2024-10-03 20:00] VITALS: BP 129/57
[2024-10-04] VITALS: BP 127/52
[2024-10-04 06:12] LABS: POTASSIUM 3.8 mmol/L (3.4-5.1)
[2024-10-04 06:44] LABS: BASO % 0.4 % (0.0-1.0); EOS # 0.1 10*3/uL (0.0-0.4); EOS % 2.1 % (1.0-4.0); HEMATOCRIT 35.5 % (42.0-52.0); MEAN CELL VOLUME 98.9 fl (80.0-94.0); MEAN CORPUSCULAR HGB 31.5 pg (27.0-31.0); MEAN CORPUSCULAR HGB CONC 31.8 g/dl (33.0-37.0); MEAN PLATELET VOLUME 11.8 fl (9.6-12.3); MONO # 0.8 10*3/uL (0.1-1.0); MONO % 14.4 % (3.0-9.0); NEUT # 3.7 10*3/uL (2.3-7.9); PLATELET COUNT AUTOMATED 124 10*3/uL (130-400); RED BLOOD COUNT 3.59 10*6/uL (4.50-5.90); RED CELL DISTRI WIDTH 13.7 % (0-14.5); WHITE BLOOD COUNT 5.3 10*3/uL (4.8-10.8)
[2024-10-04 08:00] VITALS: BP 114/34
[2024-10-04] MEDS ORDERED: COZAAR25 M1 PO (11:51)
[2024-10-04] MEDS ORDERED: OMNICEF300 MG PO (11:55)
== END 2024-10-04 13:56 | DRG 690 ==
LOC: ED 10:17 → 4E 11:13 → EDHOLD 11:13 → 4E 17:46
PROVIDERS: Student in an Organized Health Care Education/Training Program; ADMIT Internal Medicine; ATTEND Internal Medicine
DX: N39.0 Urinary tract infection, site not specified (principal); N17.9 Acute kidney failure, unspecified; K57.32 Diverticulitis of large intestine without perforation or abscess without bleeding; Z66 Do not resuscitate; F41.9 Anxiety disorder, unspecified; I48.91 Unspecified atrial fibrillation; I10 Essential (primary) hypertension; E78.5 Hyperlipidemia, unspecified; E11.40 Type 2 diabetes mellitus with diabetic neuropathy, unspecified; E11.65 Type 2 diabetes mellitus with hyperglycemia; K52.9 Noninfective gastroenteritis and colitis, unspecified; E66.09 Other obesity due to excess calories; D64.9 Anemia, unspecified; B96.20 Unspecified Escherichia coli [E. coli] as the cause of diseases classified elsewhere; Z79.899 Other long term (current) drug therapy; Z79.01 Long term (current) use of anticoagulants; Z79.2 Long term (current) use of antibiotics; Z87.891 Personal history of nicotine dependence; Z81.1 Family history of alcohol abuse and dependence; Z83.79 Family history of other diseases of the digestive system; Z82.49 Family history of ischemic heart disease and other diseases of the circulatory system; Z83.3 Family history of diabetes mellitus; Z82.3 Family history of stroke; Z86.73 Personal history of transient ischemic attack (TIA), and cerebral infarction without residual deficits; Z85.51 Personal history of malignant neoplasm of bladder; Z92.21 Personal history of antineoplastic chemotherapy; Z68.36 Body mass index [BMI] 36.0-36.9, adult